=== PATIENT | male | born 1940 | race Caucasian/White ===

== ENCOUNTER → 2016-12-16 | Outpatient (CLI) | payer MEDICARE, OTHER ==
[~2016-12-16] MED LIST: DIOVAN PO; PRILOSEC PO
--- NOTE | ~2016-12-16 | MR113 ---
[facility] A Service [facility] RADIOLOGY TEXT RESULTS PATIENT: OBI MARIE LOCATION: [facility] : 40 UNIT #: [id number] AGE: [address]: REANNA SCHAEFER SEX: M ORDER DR: [id number] [address] [address] [id number] O MR#: [id number] Acc #: [id number] NAME: OBI MARIE. : 1940 SEX: M STUDY DATE/TIME: 12/16/2016 12:02 UNIT: [facility] ROOM: STUDY DESCRIPTION: MR Lumbar Wo Contrast Attending Physician: Reanna Schaefer M.D. Referring Physician: Reanna Schaefer M.D. Ordering Physician: Sundar Not Listed Primary Care Physician: Shari Garcia Aprn MRI CENTER REPORT This report is preliminary unless electronic signature is present. EXAM Lumbar spine MRI HISTORY Chronic back pain for years. Bilateral leg pain and weakness, left greater than right, with increased falling over the past month. TECHNIQUE Multiplanar imaging of the lumbar spine was performed with short and long TR. FINDINGS Alignment is satisfactory. Degenerative changes are seen at all lumbar discs. At L1-L2, there is disc desiccation with mild concentric disc bulging and moderate bilateral facet hypertrophy. Central stenosis is mild. At L2-L3, there is broad-based posterior disc bulging and moderate facet disease with moderate central stenosis. At L3-L4, there is mild concentric disc bulging and moderately severe facet hypertrophy, again with moderate central stenosis. Foraminal narrowing is present to a mild degree on the right side. At L4-L5, there is concentric posterior disc bulging and advanced bilateral facet hypertrophy. Central stenosis is severe. Foraminal stenosis is mild bilaterally. At L5-S, there is degeneration of the disc with mild concentric disc bulging that extends into the foramina on both sides accompanied by moderate bilateral facet disease. Central stenosis is mild. Foraminal stenosis is mild bilaterally and a little worse on the left than on the [facility] A Service of [facility] RADIOLOGY TEXT RESULTS PATIENT: OBI MARIE LOCATION: [facility] #: [id number] : 40 UNIT #: [id number] AGE: [address]: REANNA SCHAEFER SEX: M ORDER DR: right. The conus is normal. There is no evidence of marrow edema and no paraspinous masses are seen. Of note is an infrarenal abdominal aortic aneurysm. Maximum diameter of the aneurysm is 5 cm. Also noted is a left renal cyst that is incompletely imaged. IMPRESSION 1. Multilevel degenerative disc and facet disease as described above level by level with multilevel spondylosis. Central stenosis is most severe at L4-L5. 2. No evidence of exiting nerve root compression at any level. Foraminal narrowing is generally mild bilaterally throughout the lumbar spine. 3. 5-cm infrarenal abdominal aortic aneurysm. Dictated by... Henry Julio M.D. THIS IS AN ELECTRONICALLY VERIFIED REPORT Henry Julio M.D. at 12/17/2016 5:04 PM LINDSEY/barbara TD: 12/17/2016 16:30 JOB #: [id number] MRI CENTER REPORT Page 1 of 1
== END | disposition home or self-care (01) ==
LOC: SMRI 12-14 10:15
DX: M54.16 Radiculopathy, lumbar region (principal); M51.16 Intervertebral disc disorders with radiculopathy, lumbar region; M47.26 Other spondylosis with radiculopathy, lumbar region; M48.06 Spinal stenosis, lumbar region; I71.4 Abdominal aortic aneurysm, without rupture
CPT/HCPCS: 72148

== ENCOUNTER → 2017-01-04 | Outpatient (CLI) | payer MEDICARE, OTHER ==
[2017-01-04 11:08] LABS: CREATININE SERUM 0.9 mg/dL (0.6-1.4); GLOM FILT RATE Estimated 82.7 mL/min (>60)
== END | disposition home or self-care (01) ==
LOC: CLAB 10:17
PROVIDERS: Surgery Vascular Surgery
DX: I71.4 Abdominal aortic aneurysm, without rupture (principal); I10 Essential (primary) hypertension; F17.290 Nicotine dependence, other tobacco product, uncomplicated
CPT/HCPCS: 36415; 82565; 84520

== ENCOUNTER → 2017-01-07 | Outpatient (CLI) | payer MEDICARE, OTHER ==
--- NOTE | ~2017-01-07 | CT14 ---
[facility] A Service of [facility] RADIOLOGY TEXT RESULTS PATIENT: OBI MARIE LOCATION: [facility] : 40 UNIT #: [id number] AGE: [address]: Naye Gilliam MD SEX: M ORDER DR: [id number] [facility] [address] [place], [place] [address] [id number] O MR#: [id number] [facility] #: [id number] NAME: OBI MARIE. : 1940 SEX: M STUDY DATE/TIME: 01/07/2017 14:01 UNIT: [facility] ROOM: STUDY DESCRIPTION: CT Angio Abdomen and Pelvis Attending Physician: Naye Gilliam M.D. Referring Physician: Naye Gilliam M.D. Ordering Physician: Naye Gilliam M.D. Primary Care Physician: Shari Garcia Aprn MEDICAL IMAGING REPORT This report is preliminary unless electronic signature is present REVISED REPORT SEE ADDENDUM EXAM CT scan of the abdomen and pelvis with angiographic reconstructions HISTORY History of aortic aneurysm, hypertension, back pain for 1.5 months. COMPARISON There is no comparison study. TECHNIQUE The patient was given 100 mL of Isovue 370 and spiral imaging was performed through the abdomen and pelvis. 3-D reconstructions of the aorta were generated. This CT exam was performed with one or more of the following radiation dose reduction techniques: automatic exposure control, adjustment of mA and/or kV according to patient size, and iterative reconstruction. FINDINGS There are multiple slightly irregular soft tissue abnormalities along the top of the diaphragm. These measure up to a centimeter in thickness and cover an area of 7-8 cm in width. They are multifocal and they also involve the posterior pleura. The one in the posterior pleura measures 2.9 x 1.0 cm. The gallbladder contains a large stone measuring at least 2.5-3 cm in diameter, but is otherwise normal. The liver, spleen, adrenal glands and right kidney are normal. The left kidney has a 6.2 cm simple cyst. There is a small enhancing focus in the tail of the pancreas measuring about 8 mm in diameter and otherwise the pancreas appears normal. The upper abdominal aorta is normal in size. The celiac artery and superior mesenteric artery are patent. There are 2 dominant renal arteries, one on each side and there is a tiny left upper pole renal STS. [facility] A Service of [facility] RADIOLOGY TEXT RESULTS PATIENT: OBI MARIE LOCATION: [facility] : 40 UNIT #: [id number] AGE: [address]: Naye Gilliam MD SEX: M ORDER DR: artery. There is no stenosis. There is infrarenal fusiform enlargement of the aorta that measures 4.8 x 4.6 cm. The aneurysm begins just below the renal arteries and extends down to the bifurcation and the aneurysm is about 11.6 mm in length. The iliac vessels are normal in size. There is no stenosis identified. There is no retroperitoneal adenopathy identified. The bowel is normal. The bladder and prostate gland are normal. The bones are unremarkable. IMPRESSION 1. There are multiple slightly irregular soft tissue plaques or masses along the top of the right hemidiaphragm and also involving the posterior pleura. These were not visible on the chest x-ray from 12/2008, suggesting they are developing lesions and the appearance is certainly worrisome for a malignancy such as mesothelioma. Correlation with any old studies is recommended if any are available. 2. 8 mm enhancing lesion at the tail of the pancreas. This was only a single phase study done at early arterial phase enhancement and this would raise the possibility of a small pancreatic tumor. 3. Fusiform enlargement of the infrarenal abdominal aorta, which measures about 4.8 cm maximum dimension and this extends from just below the renal arteries down through the bifurcation. The renal arteries, SMA and DELBERT are patent. 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 I am attempting to contact Dr. Gilliam at this time with the results. STAT * RESULT Dictated by... Gopal Kauffman M.D. THIS IS AN ELECTRONICALLY VERIFIED REPORT Gopal Kauffman M.D. at 01/09/2017 11:05 AM FEL/to TD: 01/09/2017 10:26 JOB #: [id number] ADDENDUM I have discussed the findings regarding the possible mesothelioma and the pancreatic tail mass with Dr. Gilliam's partner, Dr. Lomeli. [facility] A Service of [facility] RADIOLOGY TEXT RESULTS PATIENT: OBI MARIE LOCATION: [facility] : 40 UNIT #: [id number] AGE: [address]: Naye Gilliam MD SEX: M ORDER DR: Dictated by... Gopal Kauffman M.D. THIS IS AN ELECTRONICALLY VERIFIED REPORT Gopal Kauffman M.D. at 01/10/2017 7:26 AM FEL/psc TD: 01/09/2017 16:59 JOB #: [id number] CC: Dinora/felipe Please Delete MEDICAL IMAGING REPORT Page 1 of 1 COPY
== END | disposition home or self-care (01) ==
LOC: CCAT 13:11
DX: I71.4 Abdominal aortic aneurysm, without rupture (principal); F17.290 Nicotine dependence, other tobacco product, uncomplicated; I10 Essential (primary) hypertension; K86.89 Other specified diseases of pancreas
CPT/HCPCS: 74174; Q9967

== ENCOUNTER → 2017-03-15 | Outpatient (CLI) | payer MEDICARE, OTHER ==
--- NOTE | ~2017-03-15 | MR32 ---
[facility] A Service of [facility] RADIOLOGY TEXT RESULTS PATIENT: OBI MARIE LOCATION: [facility] : 40 UNIT #: [id number] AGE: [address]: Stanton Vivas MD SEX: M ORDER DR: [id number] [address] [address] [id number] O MR#: [id number] Acc #: [id number] NAME: OBI MARIE : 1940 SEX: M STUDY DATE/TIME: 03/15/2017 10:04 UNIT: [facility] ROOM: STUDY DESCRIPTION: MR Cervical Wo Contrast Attending Physician: Stanton Vivas M.D. Referring Physician: Stanton Vivas M.D. Ordering Physician: Stanton Vivas M.D. Primary Care Physician: Shari Garcia Aprn MRI CENTER REPORT This report is preliminary unless electronic signature is present. EXAM MRI of the cervical spine without contrast dated 03/15/2017. COMPARISON None. HISTORY Hyperreflexia for four months in arms and legs, worse in the legs and on the left side. History of fall. FINDINGS Multisequence, multiplanar imaging of the cervical spine was obtained without contrast. Vertebral body heights and alignment are preserved. Degenerative disc disease is at multiple levels. Cord demonstrates normal expected course, caliber, and signal. C2-3: Concentric disc bulge with superimposed right to left central protrusion and mild mass effect on the adjacent thecal sac. Minimal right neural foraminal encroachment. C3-4: Concentric disc bulge with mild bilateral facet changes. Mild to moderate left and mild right neural foraminal narrowing are noted with borderline-sized canal. C4-5: Concentric disc bulge with superimposed central protrusion and borderline sized to mild canal stenosis. Mild bilateral facet changes are noted with moderate to severe left and mild right neural foraminal narrowing. C5-6: Disc osteophyte complex with superimposed [id number] central protrusion with mild canal stenosis. Mild to moderate right and mild left facet hypertrophic changes are noted without any significant neural STS. [facility] A Service of [facility] RADIOLOGY TEXT RESULTS PATIENT: [facility]BI MARIE [id number] 40 UNIT #: [id number] AGE: [address]: Stanton Vivas MD SEX: M ORDER DR: foraminal narrowing. C6-7: Concentric disc bulge with superimposed central protrusion and mild mass effect on the adjacent thecal sac. No neural foraminal narrowing. C7-T1: Concentric disc bulge with small central protrusion. No canal stenosis or neural foraminal narrowing. T1-2: Tiny left central protrusion. No canal stenosis or neural foraminal narrowing. IMPRESSION 1. Degenerative changes are noted at multiple levels of the cervical spine, relatively worse at C5-6 and C6-7 as described above. 2. Cord is unremarkable. Dictated by... Bri Haider M.D. THIS IS AN ELECTRONICALLY VERIFIED REPORT Bri Haider M.D. at 03/21/2017 4:08 PM CPR/tmw TD: 03/16/2017 17:04 JOB #: [id number] MRI CENTER REPORT Page 1 of 1
== END | disposition home or self-care (01) ==
LOC: SMRI 09:41
DX: R29.2 Abnormal reflex (principal); M50.222 Other cervical disc displacement at C5-C6 level; M50.223 Other cervical disc displacement at C6-C7 level; M50.83 Other cervical disc disorders, cervicothoracic region; M50.21 Other cervical disc displacement, high cervical region; M25.78 Osteophyte, vertebrae
CPT/HCPCS: 72141